=== PATIENT | female | born 1965 | race African-American/Black ===

== ENCOUNTER 2017-01-13 15:40 | Observation (INO) | payer OTHER ==
[~2017-01-13] VITALS: Ht 167.6 cm; Wt 88.5 kg
[~2017-01-13 15:40] MED LIST: AMIT10TA25; OXYC15TA PO; TIZA4CAP; [UNRECOGNIZED DRUG - CODE] PO
[2017-01-13 15:51] VITALS: BP 145/86
--- NOTE | 2017-01-13 16:06 | NUR ---
PATIENT PRESENTS TO ED WITH C/O FOREIGN BODY ON HER THROAT WITH HOARSE VOICE; ATE A BURITO AT [facility] AT 1405 WITIN 30 MINUTES;HX OF SCREWS C4-C7 3 YEARS AGO;RX OF OXYCODONE . PT STATES " I FEEL LIKE MY THROAT IS CLOSING UP". NO ACCESSORY MUSCLES USED, NO NASAL FLARING NOTED;DENIES N/V/D; SKIN IS PINK/WARM/DRY; AAOX4 WITH EVEN AND STEADY GAIT; LUNGS CLEAR BL; HR EVEN AND REGULAR; PT DENIES ANY FEVER, CP, SOB, OR COUGH AT THIS TIME; PATIENT STATES PAIN OF 10/10 AT THIS TIME;PATIENT POSITIONED FOR COMFORT; HOB ELEVATED; BEDRAILS UP X2; BED DOWN. ALL MONITORS IN PLACED;ER MD MADE AWARE OF PT STATUS.
--- NOTE | 2017-01-13 16:14 | NUR ---
WENT TO XRAY ACCOMPANIED BY TECH.
--- NOTE | 2017-01-13 16:17 | NUR ---
BACK FROM XRAY ACCOMPANIED BY TECH.
[2017-01-13] MEDS ORDERED: GLUCAGON 1 MG VIAL IVP ONE (17:00)
[2017-01-13 17:24] LABS: RED CELL DISTRIBUTION WIDTH 13.6 % (11.6-13.7)
[2017-01-13 17:27] LABS: HEMATOCRIT 39.2 % (36-48); HEMOGLOBIN 13.1 g/dL (12.0-16.0); MEAN CORPUSCULAR HEMOGLOBIN 32 pg (27-31); MEAN CORPUSCULAR HGB CONC 34 g/dL (33-37); MEAN CORPUSCULAR VOLUME 96 fL (80-94); PLATELET COUNT (AUTO) 185 K/uL (140-450); RED BLOOD CELL COUNT(AUTO) 4.09 MIL/uL (4.20-5.40); WHITE BLOOD COUNT (AUTO) 9.6 K/uL (4.8-10.8)
[2017-01-13 17:35] LABS: ANION GAP 10.1 (8-16); CARBON DIOXIDE 31.4 mmol/L (21-32); CREATININE 0.9 mg/dL (0.6-1.3); POTASSIUM 4.5 mmol/L (3.5-5.1)
--- NOTE | 2017-01-13 17:39 | NUR ---
PT LYING ON BED;NO ACUTE DISTRESS NOTED;WILL CONTINUE TO MONITOR PT.
[2017-01-13 17:40] LABS: ALBUMIN 3.5 g/dL (3.4-5.0); TOTAL BILIRUBIN 0.5 mg/dL (0.0-1.0)
[2017-01-13 17:51] LABS: BASOPHILS % (MANUAL) 0 % (0-2); EOSINOPHILS % (MANUAL) 5 % (0-4); LYMPHOCYTES % (MANUAL) 29 % (20-46); MONOCYTES % (MANUAL) 4 % (5-12)
--- NOTE | 2017-01-13 18:33 | NUR ---
PT STATES SHE HAS STILL TIGHTNESS ON HER THROAT;WILL NOTIFY ER MD;ALL MONITORS IN PLACED;
--- NOTE | 2017-01-13 18:51 | NUR ---
PT AMBULATED TO THE RESTRROM;
[2017-01-13] MEDS ORDERED: LORazepam 2 MG/ML VIAL IVP PRN (19:30)
[2017-01-13] MEDS ORDERED: ONDANSETRON 4 MG/2 ML VIAL IVP PRN (19:30)
[2017-01-13] MEDS: NACL 0.9% 1,000 ML IV SCH (19:30)
--- NOTE | 2017-01-13 20:00 | NUR ---
Patient will be admitted to care of DR. FELDMAN. Admited to MED-SURG. Will go to room 11A. Belongings list completed. Report to CHRIS HERNANDEZ.
[2017-01-13 20:05] VITALS: BP 122/82
--- NOTE | 2017-01-13 20:05 | NUR ---
PATIENT ADMITTED TO THE UNIT FOR OBSERVATION. PATIENT IS AWAKE ALERT AND ORIENTED. AMBULATORY. NO SIGNS AND SYMPTOMS OF DISTRESS NOTED. PATIENT'S VOICE IS HOARSE, BUT NO SOB NOTED. O2 SAT IS 100% ON ROOM AIR. IV SITE NOTED ON LEFT HAND, ASYMPTOMATIC, INTACT PATENT. SKIN IS INTACT. BED IN LOWEST POSITION, SIDE RAILS UP AND CALL LIGHT WITHIN REACH. WILL CONTINUE TO MONITOR.
[2017-01-13] MEDS ORDERED: oxyCODONE 5 MG TAB PO PRN (20:30)
[2017-01-13] MEDS ORDERED: GABAPENTIN 300 MG CAP PO SCH (21:00)
--- NOTE | 2017-01-13 21:00 | NUR ---
PATIENT REFUSED GABAPENTIN, STATES THAT SHE IS UNABLE TO SWALLOW MEDICATION
--- NOTE | 2017-01-13 21:05 | NUR ---
IVF NORMAL SALINE 1000ML STARTED, TO RUN AT 80ML/HR.
[2017-01-13] MEDS: MORPHINE SULFATE 2 MG/ML SYR IVP PRN (21:10)
[2017-01-14] VITALS: BP 122/70
[2017-01-14] MEDS: MORPHINE SULFATE 2 MG/ML SYR IVP PRN ×2 (02:39→10:55)
--- NOTE | 2017-01-14 03:00 | NUR ---
CHECKED ON PATIENT. PATIENT IS ASLEEP. NO SIGNS AND SYMPTOMS OF DISTRESS NOTED. BED IN LOWEST POSITION, SIDE RAILS UP AND CALL LIGHT WITHIN REACH. WILL CONTINUE TO MONITOR.
--- NOTE | 2017-01-14 07:10 | NUR ---
PATIENT REPORT GIVEN TO MORNING NURSE. PATIENT IS IN STABLE CONDITION
--- NOTE | 2017-01-14 07:10 | NUR ---
ASSUMED CONTINUITY OF CARE. NO SIGNS AND SYMPTOMS OF ACUTE DISTRESS NOTED. INITIAL ASSESSMENT DONE. KEEP COMFORTABLE ON BED. EXPLAINED DIAGNOSIS, PLAN OF CARE, PAIN MANAGEMENT TEACHING, USE OF CALL LIGHT/BED/TV/BATHROOM. VERBALIZED UNDERSTANDING. CALL LIGHT WITHIN REACH.
[2017-01-14 07:20] LABS: ANION GAP 8.9 (8-16); CARBON DIOXIDE 28.7 mmol/L (21-32); CREATININE 0.8 mg/dL (0.6-1.3); POTASSIUM 3.6 mmol/L (3.5-5.1)
[2017-01-14 08:00] VITALS: BP 110/78
[2017-01-14] MEDS ORDERED: oxyCODONE 5 MG TAB PO PRN (08:28)
[2017-01-14] MEDS: NACL 0.9% 1,000 ML IV SCH (08:42)
--- NOTE | 2017-01-14 08:42 | NUR ---
IVF NORMAL SALINE FINISHED AND HANGED A NEW NS 1000 ML.
--- NOTE | 2017-01-14 08:47 | NUR ---
DR. NAGY SPOKE TO PT. AT BEDSIDE. INFORMED DR. NAGY ABOUT GABAPENTIN 600 MG PO BID THAT PT. NOT TAKING MENTIONED MEDS DUE TO SWALLOWING DIFFICULTY. DR. NAGY ORDERED TO D/C GABAPENTIN.
--- NOTE | 2017-01-14 09:30 | NUR ---
Patient's Plan of Care was discussed and reviewed with [employer] MECHANIC: NELLIE Gonsalez
[2017-01-14 12:00] VITALS: BP 129/91
--- NOTE | 2017-01-14 13:57 | NUR ---
01/14/17 RD INITIAL ASSESSMENT COMPLETED PLEASE REFER TO NUTRITION ASSESSMENT UNDER CARE ACTIVITY FOR ESTIMATED NEEDS. RECOMMENDATIONS: 1.WHEN MEDICALLY ABLE ADVANCE DIET TO REGULAR TOLERATED PLEASE OBTAIN A SWALLOW EVALUATION IF CONCERN FOR SWALLOWING DIFFICULTIES. 2. RD WILL FOLLOW UP IN 2-3 DAYS; HIGH RISK. [place] [address]
--- NOTE | 2017-01-14 14:30 | NUR ---
DR. NAGY CALLED BACK AND SPOKE TO CHARGE NURSE REGARDING DINO LE INSTRUCTION TO CHARGE NURSE THAT IF PT. TOLERATE REGULAR DIET PT. CAN BE D/C. DR. NAGY GAVE D/C ORDER TO CHARGE NURSE VIA PHONE. PER CHARGE NURSE EMEKA GUERRERO -RN, PT. WILL D/C HOME NOW.
--- NOTE | 2017-01-14 14:45 | NUR ---
EXPLAINED TO PT. ABOUT MD D/C ORDER, PT. PCP FOLLOW-UP, MEDICATION RECONCILIATION TEACHING, DISEASE MANAGEMENT TEACHING, PAIN MANAGEMENT TEACHING. VERBALIZED UNDERSTANDING.
--- NOTE | 2017-01-14 14:50 | NUR ---
D/C IVF NORMAL SALINE AT 8O ML/HR AT THIS TIME. PT. FOR D/C HOME.
--- NOTE | 2017-01-14 15:05 | NUR ---
REFUSED TO USE WHEELCHAIR FOR D/C. PT. AMBULATORY AND HAD STEADY GAIT AND BALANCE. D/C HOME, AWAKE, ALERT, AND ORIENTED X4. SPEECH CLEAR. NO C/O PAIN. NO SOB, NOTED. IN STABLE CONDITION. INFORMED CHARGE NURSE EMEKA WAHL.
--- NOTE | 2017-01-23 06:36 | NUR ---
VANCOMYCIN STOPPED INFUSING Addendum: 02/22/17 at 0138 by Santa Shafer RN WRONG PATIENT
== END 2017-01-14 15:05 | disposition home or self-care (01) ==
LOC: MED 15:40 → MTU 19:33
PROVIDERS: ADMIT Hospitalist; ATTEND Hospitalist
DX: R13.19 Other dysphagia (principal); M50.323 Other cervical disc degeneration at C6-C7 level; T17.228A Food in pharynx causing other injury, initial encounter; X58.XXXA Exposure to other specified factors, initial encounter; Y93.89 Activity, other specified; Y92.89 Other specified places as the place of occurrence of the external cause; Y99.8 Other external cause status
CPT/HCPCS: 36415; 70360; 80048; 80053; 85025; 87081; 96361; 96374; 96375; 96376; 99285; G0378; J1610; J2270; J7030

== ENCOUNTER 2017-07-27 20:27 | Emergency (ER) | payer OTHER ==
[~2017-07-27] VITALS: Ht 167.6 cm; Wt 100.2 kg
[2017-07-27 20:36] VITALS: BP 133/85
--- NOTE | 2017-07-27 20:39 | NUR ---
PT. AMBULATED TO [facility]
[2017-07-27 21:44] LABS: BASOPHILS % (AUTO) 0.2 % (0.0-2.0); EOSINOPHILS # (AUTO) 0.2 K/uL (0-0.4); EOSINOPHILS % (AUTO) 3.6 % (0.0-4.0); HEMATOCRIT 39.5 % (36-48); LYMPHOCYTES % (AUTO) 30.3 % (20.5-51.1); MEAN CORPUSCULAR HEMOGLOBIN 30 pg (27-31); MEAN CORPUSCULAR HGB CONC 33 g/dL (33-37); MEAN CORPUSCULAR VOLUME 91.6 fL (80-94); MONOCYTES # (AUTO) 0.3 K/uL (0.8-1.0); MONOCYTES % (AUTO) 5.3 % (1.7-9.3); NEUTROPHILS % (AUTO) 60.6 % (42.2-75.2); PLATELET COUNT (AUTO) 195 K/uL (140-450); RED BLOOD CELL COUNT(AUTO) 4.31 MIL/uL (4.20-5.40); RED CELL DISTRIBUTION WIDTH 13.9 % (11.6-13.7); WHITE BLOOD COUNT (AUTO) 6.5 K/uL (4.8-10.8)
[2017-07-27 22:01] LABS: ANION GAP 10.9 (8-16); CARBON DIOXIDE 28.8 mmol/L (21-32); CREATININE 0.9 mg/dL (0.6-1.3); POTASSIUM 3.7 mmol/L (3.5-5.1)
[2017-07-27 22:07] LABS: ALBUMIN 3.3 g/dL (3.4-5.0); TOTAL BILIRUBIN 0.4 mg/dL (0.0-1.0)
--- NOTE | 2017-07-27 22:15 | NUR ---
TO ER BED 8
--- NOTE | 2017-07-27 22:30 | NUR ---
51/F CAME IN ED, C/O 11/20 SHARP LOWER ABD PAIN, RADIATING TO BACK, X1 WEEK. ABD SOFT, ROUND, TENDER ON PALPATION. LBM TODAY. PT REPORTS BRIGHT RED HEMATURIA, PT DENIES DYSURIA. MED HX "PLATES AND SCREWS ON NECK." PT REPORTS ALLERGY TO IODINE. PT DENIES N/V/D; SKIN IS INTACT, PINK/WARM/DRY; AAOX4, PERRL, WITH EVEN AND STEADY GAIT; LUNGS CLEAR BL, BREATHING UNLABORED; HR EVEN AND REGULAR, BL PERIPHERAL PULSES PRESENT; PT DENIES ANY FEVER, CP, SOB, OR COUGH AT THIS TIME; VSS; PATIENT POSITIONED FOR COMFORT; HOB ELEVATED; BEDRAILS UP X2; BED DOWN. ER MD DR CHINCHILLA AWARE.
[2017-07-27] MEDS ORDERED: KETOROLAC 60 MG/2 ML VIAL IM ONE (22:40)
--- NOTE | 2017-07-27 23:30 | NUR ---
PT TAKEN TO CT
--- NOTE | 2017-07-28 00:12 | NUR ---
PT RESTING COMFORTABLY IN BED, PT REPORTS DECREASED PAIN, RR EVEN AND UNLABORED, ALL NEEDS MET AT THIS TIME.
[2017-07-28 01:12] LABS: APPEARANCE,URINE CLEAR (CLEAR); COLOR,URINE YELLOW (YELLOW)
[2017-07-28 01:13] LABS: BILIRUBIN,URINE NEGATIVE (NEGATIVE); BLOOD, URINE TRACE (NEGATIVE); LEUKOCYTE ESTERASE ,URINE TRACE (NEGATIVE); NITRITE, URINE NEGATIVE (NEGATIVE); UGLUCOSE NEGATIVE (NEGATIVE)
[2017-07-28 01:47] LABS: RBC,URINE 0-5 (RARE) /HPF (0-5); WBC,URINE 0-5 (RARE) /HPF (0-5)
--- NOTE | 2017-07-28 02:05 | NUR ---
PT RESTING COMFORTABLY, VSS, RR EVEN AND UNLABORED. ALL NEEDS MET.
[2017-07-28] MEDS ORDERED: HYDROcodone/APAP 5/325 MG 1 TAB TAB PO ONE (03:20)
--- NOTE | 2017-07-28 04:00 | NUR ---
PT REFUSED NORCO PO
[2017-07-28 04:01] VITALS: BP 140/80
--- NOTE | 2017-07-28 04:01 | NUR ---
DPatient discharged with v/s stable. Written and verbal after care instructions given and explained. Patient alert, oriented and verbalized understanding of instructions. Ambulatory with steady gait. All questions addressed prior to discharge. ID band removed. Patient advised to follow up with PMD. Rx of IBUPROFEN 600MG, CEPHALEXIN 500MG given. Patient educated on indication of medication including possible reaction and side effects. Opportunity to ask questions provided and answered.
== END 2017-07-28 04:01 | disposition home or self-care (01) ==
LOC: MED 20:27
DX: R10.30 Lower abdominal pain, unspecified (principal); R21 Rash and other nonspecific skin eruption; R68.83 Chills (without fever); Z79.899 Other long term (current) drug therapy; Z90.89 Acquired absence of other organs; Z88.8 Allergy status to other drugs, medicaments and biological substances; Z91.018 Allergy to other foods
CPT/HCPCS: 36415; 74176; 80053; 81001; 81025; 82150; 83690; 84703; 85025; 96372; 99285; J1885

== ENCOUNTER 2017-12-04 02:57 | Emergency (ER) | payer OTHER ==
[~2017-12-04] VITALS: Ht 167.6 cm; Wt 102.1 kg
[2017-12-04 02:59] VITALS: BP 135/85
--- NOTE | 2017-12-04 03:00 | NUR ---
PT TAKEN TO BED 11
--- NOTE | 2017-12-04 03:08 | NUR ---
Dr. Roca evaluating patient at bedside.
--- NOTE | 2017-12-04 03:30 | NUR ---
PT BIB SELF C/O SUDDEN ONSET HEAVY VAGINAL BLEEDING X 2 DAYS W/ LOWER PELVIC CRAMPING. PT STATES LAST NORMAL MENSTRUATION WAS 3 YEARS AGO. PT REPORTS 3 PADS/TAMPONS A DAY. ABD IS ROUND, SOFT, NON TENDER, ACTIVE BS X4. PT DENIES N/V/D. PT IS SITTING IN BED, COMFORT NEEDS MET AT THIS TIME. NO PMH
--- NOTE | 2017-12-04 03:34 | NUR ---
LAB AT BEDSIDE.
--- NOTE | 2017-12-04 04:01 | NUR ---
PT TAKEN TO ULTRASOUND
[2017-12-04 04:04] LABS: HEMATOCRIT 39.1 % (36-48); MEAN CORPUSCULAR HEMOGLOBIN 31 pg (27-31); MEAN CORPUSCULAR HGB CONC 33 g/dL (33-37); MEAN CORPUSCULAR VOLUME 93.3 fL (80-94); PLATELET COUNT (AUTO) 207 K/uL (140-450); RED BLOOD CELL COUNT(AUTO) 4.19 MIL/uL (4.20-5.40); RED CELL DISTRIBUTION WIDTH 13.6 % (11.6-13.7); WHITE BLOOD COUNT (AUTO) 8.5 K/uL (4.8-10.8)
[2017-12-04 04:05] LABS: BASOPHILS # (AUTO) 0.1 K/uL (0.00-0.22); BASOPHILS % (AUTO) 1.5 % (0.0-2.0); EOSINOPHILS # (AUTO) 0.3 K/uL (0-0.4); LYMPHOCYTES # (AUTO) 2.3 K/uL (2.5-16.5); LYMPHOCYTES % (AUTO) 26.8 % (20.5-51.1); MONOCYTES # (AUTO) 0.5 K/uL (0.8-1.0); MONOCYTES % (AUTO) 5.8 % (1.7-9.3); NEUTROPHILS # (AUTO) 5.3 K/uL (1.8-7.7); NEUTROPHILS % (AUTO) 62.9 % (42.2-75.2)
[2017-12-04 04:08] LABS: ANION GAP 8.5 (8-16); CARBON DIOXIDE 30.5 mmol/L (21-32); CREATININE 0.8 mg/dL (0.6-1.3)
[2017-12-04 04:23] LABS: FREE T4 (FREE THYROXINE) 0.88 ng/dL (0.76-1.46); THYROID STIMULATING HORMONE 4.58 uIU/mL (0.34-3.74)
--- NOTE | 2017-12-04 04:25 | NUR ---
PT RETURN FROM ULTRASOUND
[2017-12-04 06:35] VITALS: BP 137/80
== END 2017-12-04 06:34 | disposition home or self-care (01) ==
LOC: MED 02:57
DX: N93.8 Other specified abnormal uterine and vaginal bleeding (principal); Z91.018 Allergy to other foods; Z79.899 Other long term (current) drug therapy; Z98.890 Other specified postprocedural states
CPT/HCPCS: 36415; 76830; 80048; 81002; 81025; 84439; 84443; 85025; 86886; 86900; 86901; 99285; Q0092

== ENCOUNTER 2018-04-25 11:26 | Emergency (ER) | payer OTHER ==
[~2018-04-25] VITALS: Ht 167.6 cm; Wt 104.3 kg
[~2018-04-25 11:26] MED LIST changes: +GABA600T12 PO; -[UNRECOGNIZED DRUG - CODE] PO
--- NOTE | 2018-04-25 11:32 | NUR ---
Marta sylvester in [facility] - 04/25/18 at 1142 by JHON PT AMBULATED TO ER BED 01
[2018-04-25 11:35] VITALS: BP 126/87
--- NOTE | 2018-04-25 11:40 | NUR ---
BIB SELF. STATES SHE HAD DISKS 4,5,6,7 FUSED WITH PLATES AND SCREWS 3 YEARS AGO AND FELL YESTERDAY AND HER DOCTOR WANTED HER TO BE CHECKED TO MAKE SURE THAT NONE OF HER DISKS HAVE MOVED. REQUESTING A X RAY.
--- NOTE | 2018-04-25 11:43 | NUR ---
PT AMBULATED TO ER BED 06
[2018-04-25] MEDS ORDERED: MORPHINE SULFATE 4 MG/ML SYR IM ONE (12:00)
--- NOTE | 2018-04-25 12:01 | NUR ---
PT TAKEN TO RADIOLOGY AT THIS TIME
--- NOTE | 2018-04-25 13:35 | NUR ---
NO NEEDS STATED AT THIS TIME. AWAITING RAD CD BEFORE PATIENT IS DISCHARGED.
[2018-04-25 13:46] VITALS: BP 126/87
--- NOTE | 2018-04-25 13:46 | NUR ---
Patient discharged with v/s stable. Written and verbal after care instructions given and explained. Patient verbalized understanding. Ambulatory with steady gait. All questions addressed prior to discharge. Advised to follow up with PMD.
== END 2018-04-25 13:46 | disposition home or self-care (01) ==
LOC: MED 11:26
DX: M54.12 Radiculopathy, cervical region (principal); Z88.8 Allergy status to other drugs, medicaments and biological substances; Z91.018 Allergy to other foods; Z79.899 Other long term (current) drug therapy
CPT/HCPCS: 72125; 96372; 99284; J2270

== ENCOUNTER 2018-05-27 21:07 | Emergency (ER) | payer OTHER ==
[~2018-05-27] VITALS: Ht 167.6 cm; Wt 106.6 kg
[2018-05-27 21:21] VITALS: BP 127/102
--- NOTE | 2018-05-27 21:25 | NUR ---
PT AMBULATED TO LOBBY WITH VSS.
--- NOTE | 2018-05-27 23:02 | NUR ---
PT AMBULATED TO BED 01.
--- NOTE | 2018-05-27 23:05 | NUR ---
PATIENT PRESENTS TO ED WITH C/O OF SORE THROAT AND DYSPNEA X3 DAYS. THROAT REDNESS AND EDEMA. O2SAT 99%. STATES C4-C7 FINFUSED WITH SCREWS. HAD INJECTION IN NECK ON MONDAY TO REDUCE SWELLING. SINCE MONDAY, C/O THROAT EDEMADENIES N/V/D; SKIN IS PINK/WARM/DRY; AAOX4 WITH EVEN AND STEADY GAIT; LUNGS CLEAR BL; HR EVEN AND REGULAR; PT DENIES ANY FEVER, CP, SOB, OR COUGH AT THIS TIME; PATIENT STATES PAIN OF 6/10 AT THIS TIME; VSS; PATIENT POSITIONED FOR COMFORT; HOB ELEVATED; BEDRAILS UP X2; BED DOWN. ER MD MADE AWARE OF PT STATUS.
[2018-05-28] MEDS ORDERED: AMOXICILLIN 500 MG CAP PO ONE (02:20)
[2018-05-28] MEDS ORDERED: LIDOCAINE VISCOUS 2% 20 ML UDC PO ONE (02:20)
[2018-05-28 03:03] VITALS: BP 122/64
--- NOTE | 2018-05-28 03:03 | NUR ---
Patient discharged with v/s stable. Written and verbal after care instructions given and explained. Patient alert, oriented and verbalized understanding of instructions. Ambulatory with steady gait. All questions addressed prior to discharge. ID band removed. Patient advised to follow up with PMD. Rx of amoxicillin and lidocane PO given. Patient educated on indication of medication including possible reaction and side effects. Opportunity to ask questions provided and answered.
== END 2018-05-28 03:03 | disposition home or self-care (01) ==
LOC: MED 21:07
DX: J02.8 Acute pharyngitis due to other specified organisms (principal); B96.89 Other specified bacterial agents as the cause of diseases classified elsewhere; Z79.891 Long term (current) use of opiate analgesic; Z79.899 Other long term (current) drug therapy; Z91.018 Allergy to other foods; Z88.8 Allergy status to other drugs, medicaments and biological substances
CPT/HCPCS: 87081; 87804; 99283

== ENCOUNTER 2020-03-14 20:57 | Emergency (ER) | payer OTHER ==
[~2020-03-14] VITALS: Ht 170.2 cm; Wt 108.0 kg
[2020-03-14 21:08] VITALS: BP 137/77
--- NOTE | 2020-03-14 21:08 | NUR ---
ERMD EVALUATING PATIENT IN TRIAGE.
--- NOTE | 2020-03-14 21:17 | NUR ---
Pt taken to Xray via w/c.
[2020-03-14] MEDS ORDERED: oxyCODONE 10 MG TABER PO ONE (21:25)
[2020-03-14] MEDS ORDERED: KETOROLAC 30 MG/ML VIAL IM ONE (21:25)
--- NOTE | 2020-03-14 21:30 | NUR ---
54 y/o female presented to ED c/o Rt shoulder pain x today . Pt states she was trying to take down [place] lights and slipped off her chair and landed on Rt shoulder. Pt denies LOC. Pt denies Fever, body aches , chills. Pt + radial pulses. Pt denies numbness and tingling in Rt extremity. +CMS. Pt sitting in chair. No acute distress . VSS. pmh: neck surgery C4 - C7 ax: Iodine , OJ
--- NOTE | 2020-03-14 21:54 | NUR ---
SLING SIZE LARGE PLACED OVER PT R ARM, FASTENED TO SIZE.
--- NOTE | 2020-03-14 22:00 | NUR ---
Patient discharged with out after care instructions .
== END 2020-03-14 22:00 | disposition home or self-care (01) ==
LOC: MED 20:57
DX: S43.401A Unspecified sprain of right shoulder joint, initial encounter (principal); Z88.8 Allergy status to other drugs, medicaments and biological substances; Z91.018 Allergy to other foods; Z79.899 Other long term (current) drug therapy; Z98.890 Other specified postprocedural states; W07.XXXA Fall from chair, initial encounter; Y93.89 Activity, other specified; Y92.89 Other specified places as the place of occurrence of the external cause; Y99.8 Other external cause status
CPT/HCPCS: 73030; 96372; 99283; J1885

== ENCOUNTER 2021-03-02 06:03 | Emergency (ER) | payer OTHER ==
[~2021-03-02] VITALS: Ht 167.6 cm; Wt 93.0 kg
[2021-03-02 06:04] VITALS: BP 135/94
== END 2021-03-02 07:52 | disposition left against medical advice (07) ==
LOC: MED 06:03
DX: S39.012A Strain of muscle, fascia and tendon of lower back, initial encounter (principal); G89.29 Other chronic pain; M54.2 Cervicalgia; Z88.8 Allergy status to other drugs, medicaments and biological substances; X58.XXXA Exposure to other specified factors, initial encounter; Y93.89 Activity, other specified; Y92.89 Other specified places as the place of occurrence of the external cause; Y99.8 Other external cause status
CPT/HCPCS: 72125; 72131; 99285

== ENCOUNTER 2021-07-06 03:14 | Emergency (ER) | payer OTHER ==
[~2021-07-06] VITALS: Ht 167.6 cm; Wt 83.9 kg
[2021-07-06 03:17] VITALS: BP 117/84
--- NOTE | 2021-07-06 03:24 | NUR ---
pt ambulatory to bed 08. Addendum: 07/06/21 at 0343 by JOSE DAVIDJKameron 55 YO F BIBA SELF FOR LT SHOULDER PAIN. CHRONIC PAIN LASTING TWO MONTHS. PT STATES IT GETS SO BAD SHE CANT PERFORM ADLS. PAIN FEELS LIKE STABBING. PT STATES PAIN 10/10. DENIES N/V/D; AAOX4 WITH EVEN AND STEADY GAIT; PT DENIES ANY FEVER, CP, SOB, OR COUGH AT THIS TIME. PMH: NECK SURGERY. PT HAD DISCS REMOVED IN 2016. RX: OXYCODONE ALLERGIES: ORANGE JUICE AND IODINE
--- NOTE | 2021-07-06 04:05 | NUR ---
Dr. Mueller examining patient.
--- NOTE | 2021-07-06 04:31 | NUR ---
55 YO F BIB SELF FOT LT SHOULER PAIN 8/10 FOR X2 MONTHS. PT STATES THAT THEY HAVE A HARD TIME PERFORMING ADLS . PT STATES THAT SHE CANT EVEN SLEEP BECUASE THE PAIN IS SO BAD. A&O X4 . AMBULATORY PMH: NECK DISC SURGERY RX:OXYCODON
--- NOTE | 2021-07-06 04:56 | NUR ---
X-Ray at bedside.
[2021-07-06] MEDS ORDERED: NAPR-1704 PO (05:09)
[2021-07-06 05:17] VITALS: BP 117/84
--- NOTE | 2021-07-06 05:18 | NUR ---
The patient's care was reviewed and supervised by Shavon Hernandez RN.
== END 2021-07-06 05:17 | disposition home or self-care (01) ==
LOC: MED 03:14
DX: S49.91XA Unspecified injury of right shoulder and upper arm, initial encounter (principal); Z98.890 Other specified postprocedural states; Z79.899 Other long term (current) drug therapy; Z79.1 Long term (current) use of non-steroidal anti-inflammatories (NSAID); Z79.891 Long term (current) use of opiate analgesic; Z91.018 Allergy to other foods; Z88.8 Allergy status to other drugs, medicaments and biological substances; W01.0XXA Fall on same level from slipping, tripping and stumbling without subsequent striking against object, initial encounter; Y92.89 Other specified places as the place of occurrence of the external cause; Y93.89 Activity, other specified; Y99.8 Other external cause status
CPT/HCPCS: 73030; 99283; Q0092

== ENCOUNTER 2022-07-19 03:45 | Emergency (ER) | payer OTHER ==
[~2022-07-19] VITALS: Ht 170.2 cm; Wt 96.2 kg
[~2022-07-19 03:45] MED LIST changes: +NAPR-1704 PO
[2022-07-19 03:58] VITALS: BP 107/76
--- NOTE | 2022-07-19 04:17 | NUR ---
PT TAKEN TO BED 11
[2022-07-19] MEDS: MORPHINE SULFATE 10 MG/ML VIAL IM ONE (04:54)
--- NOTE | 2022-07-19 04:54 | NUR ---
PT TAKEN TO RADIOLOGY
[2022-07-19] MEDS: LIDOCAINE 5% 1 EA PATCH TP SCH (04:55)
[2022-07-19] MEDS: CYCLOBENZAPRINE 10 MG TAB PO ONE (04:56)
[2022-07-19] MEDS: predniSONE 20 MG TAB PO ONE (04:56)
[2022-07-19] MEDS: ONDANSETRON 4 MG ODT PO ONE (04:57)
[2022-07-19] MEDS ORDERED: DICL20GE TP (04:57)
[2022-07-19] MEDS ORDERED: LID5T TP (04:57)
--- NOTE | 2022-07-19 05:35 | NUR ---
Ultrasound at bedside.
[2022-07-19 06:39] VITALS: BP 142/70
== END 2022-07-19 06:39 | disposition home or self-care (01) ==
LOC: MED 03:45
DX: M54.31 Sciatica, right side (principal); M25.561 Pain in right knee; M25.551 Pain in right hip; Z88.8 Allergy status to other drugs, medicaments and biological substances; Z91.018 Allergy to other foods; Z79.899 Other long term (current) drug therapy; Z98.890 Other specified postprocedural states
CPT/HCPCS: 73502; 73562; 93971; 96372; 99285; J2270; J7512; Q0092; Q0162

== ENCOUNTER 2022-09-05 23:15 | Emergency (ER) | payer OTHER ==
[~2022-09-05] VITALS: Ht 167.6 cm; Wt 101.6 kg
[~2022-09-05 23:15] MED LIST changes: +DICL20GE TP; +LID5T TP
[2022-09-05 23:24] VITALS: BP 112/71; PULSE 98; RESP 18; TEMP 96.9; O2SAT 96
--- NOTE | 2022-09-05 23:30 | NUR ---
Pt ambulated to ED RM 12.
--- NOTE | 2022-09-05 23:34 | NUR ---
Urine collected and sent to lab.
--- NOTE | 2022-09-05 23:40 | NUR ---
DR. BARRERA EXAMINING PATIENT AT BEDSIDE.
[2022-09-05 23:42] LABS: APPEARANCE,URINE SL CLOUDY (CLEAR); BILIRUBIN,URINE NEGATIVE (NEGATIVE); BLOOD, URINE TRACE-I (NEGATIVE); COLOR,URINE YELLOW (YELLOW); LEUKOCYTE ESTERASE ,URINE 2+ (NEGATIVE); NITRITE, URINE NEGATIVE (NEGATIVE); PH,URINE 6.5 (5.0-9.0); UGLUCOSE NEGATIVE (NEGATIVE)
[2022-09-05 23:49] LABS: RBC,URINE 0-5 /HPF (0-5)
[2022-09-05] MEDS ORDERED: CEPH-588 PO (23:56)
[2022-09-05 23:58] VITALS: BP 112/71; PULSE 98; RESP 18; TEMP 96.9; O2SAT 96
== END 2022-09-06 00:10 | disposition home or self-care (01) ==
LOC: MED 23:15
DX: N39.0 Urinary tract infection, site not specified (principal); Z91.040 Latex allergy status; Z91.018 Allergy to other foods; Z79.899 Other long term (current) drug therapy; Z98.890 Other specified postprocedural states
CPT/HCPCS: 81001; 87086; 99283

== ENCOUNTER 2022-12-08 22:24 | Emergency (ER) | payer OTHER ==
[~2022-12-08] VITALS: Ht 167.6 cm; Wt 100.7 kg
[~2022-12-08 22:24] MED LIST changes: +CEPH-588 PO
[2022-12-08 22:30] VITALS: BP 118/90; PULSE 78; RESP 17; TEMP 98; O2SAT 99
[2022-12-09] MEDS ORDERED: diphenhydrAMINE 50 MG CAP PO ONE (00:30)
[2022-12-09] MEDS ORDERED: BEN50 PO (00:32)
== END 2022-12-09 01:15 | disposition home or self-care (01) ==
LOC: MED 22:24
DX: L23.9 Allergic contact dermatitis, unspecified cause (principal); Z91.018 Allergy to other foods; Z79.899 Other long term (current) drug therapy
CPT/HCPCS: 99282; Q0163